=== PATIENT | male | born 1960 | race Caucasian/White ===

== ENCOUNTER → 2018-06-07 | Outpatient (REF) | payer BC ==
[2018-06-07 11:15] LABS: FERRITIN 139 NG/ML (26-388); IRON (FE) 74 UG/DL (65-175); PERCENT SATURATION 25.1 % (19.7-50.0); TOTAL IRON BINDING CAPACITY 295 UG/DL (250-450)
== END ==
LOC: M LAB REF 10:13
DX: D47.3 Essential (hemorrhagic) thrombocythemia (principal)

== ENCOUNTER → 2018-07-10 | Outpatient (CLI) | payer BC | LOC: M RAD 07:03 | DX: R16.1 Splenomegaly, not elsewhere classified (principal); I71.4 Abdominal aortic aneurysm, without rupture; D47.3 Essential (hemorrhagic) thrombocythemia | CPT/HCPCS: 76700 ==